=== PATIENT | male | born 1960 ===

== ENCOUNTER 2021-05-19 13:51 | Emergency (ER) | payer OTHER ==
[~2021-05-19] VITALS: Ht 182.9 cm; Wt 103.1 kg
[2021-05-19 14:04] VITALS: BP 162/95
--- NOTE | 2021-05-19 14:46 | NUR ---
ERPA REMOVED C-COLLAR. PT DENIES MID-LINE NECK TENDERNESS.
--- NOTE | 2021-05-19 14:54 | NUR ---
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 [facility] NOTIFIED. N/O FOR CT BEFORE XRAYS CAN BE DONE. C-COLLAR PLACED.
--- NOTE | 2021-05-19 16:20 | NUR ---
ALL RESULTS ARE BACK AT THIS TIME. CHART UP FOR RECHECK. CT NECK CLEAR. C-COLLAR HAS BEEN REMOVED.
== END 2021-05-19 16:38 | disposition home or self-care (01) ==
LOC: ED 16:20
DX: S16.1XXA Strain of muscle, fascia and tendon at neck level, initial encounter (principal); M25.512 Pain in left shoulder; R07.89 Other chest pain; V49.49XA Driver injured in collision with other motor vehicles in traffic accident, initial encounter; Y93.89 Activity, other specified; Y92.410 Unspecified street and highway as the place of occurrence of the external cause; Y99.8 Other external cause status
CPT/HCPCS: 71046; 72125; 99284